=== PATIENT | male | born 1955 | race Caucasian/White ===

== ENCOUNTER 2017-12-26 20:18 | Inpatient (IN) | payer OTHER ==
[~2017-12-26] VITALS: Ht 185.4 cm; Wt 99.8 kg
[~2017-12-26 20:18] MED LIST: BACTRIM DS TAB1 EACH PO; [UNRECOGNIZED DRUG - REMARK]
[2017-12-26 20:22] VITALS: BP 154/76
[2017-12-26] MEDS ORDERED: ATORVASTATIN CA40 MG PO (20:29)
[2017-12-26] MEDS ORDERED: FOSAMAX 70 MG T70 MG PO (20:29)
[2017-12-26] MEDS ORDERED: ASPIR 8181 MG PO (20:29)
[2017-12-26] MEDS ORDERED: VITAMINC500 PO (20:29)
[2017-12-26] MEDS ORDERED: AZITHROMYCIN 2250 MG PO (20:30)
[2017-12-26] MEDS ORDERED: CODEINE-GUAIFE120 ML PO (20:31)
[2017-12-26] MEDS ORDERED: DICLOFENAC SODI75 MG TOP (20:32)
[2017-12-26] MEDS ORDERED: IRON325 PO (20:33)
[2017-12-26] MEDS ORDERED: DOXYCYCLINE 10100 MG PO (20:33)
[2017-12-26] MEDS ORDERED: ALLERGY RELIEF180 MG PO (20:33)
[2017-12-26] MEDS ORDERED: FLONASE 0.05%50 MCG NASAL (20:34)
[2017-12-26] MEDS ORDERED: NEURONTIN300 MG PO (20:34)
[2017-12-26] MEDS ORDERED: GENERLAC10 GM/15 M PO (20:35)
[2017-12-26] MEDS ORDERED: COZAAR 25 MG TA25 M1 PO (20:35)
[2017-12-26] MEDS ORDERED: MAGOX 400400 MG PO (20:35)
[2017-12-26] MEDS ORDERED: NITROGLYCERIN0.4 MG SUBLING (20:36)
[2017-12-26] MEDS ORDERED: LOPRESSOR25 PO (20:36)
[2017-12-26] MEDS ORDERED: MELATONIN5 M1 PO (20:36)
[2017-12-26] MEDS ORDERED: GLUCOPHAGE XR500 MG PO (20:36)
[2017-12-26] MEDS ORDERED: OMEPRAZOLE20 M2 PO (20:37)
[2017-12-26] MEDS ORDERED: OXYCODONE HCL 55 MG PO (20:37)
[2017-12-26] MEDS ORDERED: VALACYCLOVIR HCL1 GM PO (20:38)
[2017-12-26] MEDS ORDERED: AMBIEN 5 MG TABL5 M1 PO (20:38)
[2017-12-26 20:50] LABS: ABSOLUTE LYMPHOCYTES 0.4 thou/uL (0.8-5.3); ABSOLUTE MONOCYTES 0.4 thou/uL (0.0-1.2); ABSOLUTE NEUTROPHILS 2.1 thou/uL (1.6-8.1); BASOPHILS 0.2 %; EOSINOPHILS 0.5 %; HEMATOCRIT 38.9 % (42.0-52.0); HEMOGLOBIN 13.8 gm/dL (14.0-18.0); LYMPHOCYTES 13.9 %; MCH 32.8 pg (26.0-34.0); MCHC 35.3 g/dL (28.0-37.0); MCV 92.8 fL (80.0-100.0); MONOCYTES 12.7 %; MPV 7.7 fl. (7.2-11.1); NUCLEATED RBCS 0 /100WBC; PLATELET COUNT* 103 thou/uL (150-400); POLYS 72.7 %; RDW-CV 12.9 % (10.5-14.5); WBC 2.9 thou/uL (4.0-11.0)
[2017-12-26 20:57] LABS: ANION GAP 10 mmol/L (7-16); BUN 14 mg/dL (7-18); CALCIUM 8.8 mg/dL (8.5-10.1); CHLORIDE 97 mmol/L (98-107); CO2 26 mmol/L (21-32); CREATININE 0.9 mg/dL (0.6-1.3); GLUCOSE 216 mg/dL (70-99); INR 1.3; PROTIME 12.6 Seconds (9.20-11.50); SODIUM 133 mmol/L (136-145)
[2017-12-26 21:07] LABS: ALBUMIN 3.2 g/dL (3.4-5.0); ALKALINE PHOSPHATASE 57 U/L (46-116); LIPASE 101 U/L (73-393); NT-PRO BRAIN NAT PEPTIDE 835 pg/mL (<300); SGOT 37 U/L (15-37); SGPT 46 U/L (30-65); TOTAL BILIRUBIN 0.7 mg/dL (<0.1-1.0); TOTAL PROTEIN 7.8 g/dL (6.4-8.2); TROPONIN-I LEVEL <0.06 ng/mL (<0.06)
[2017-12-26 21:14] LABS: URINE BILIRUBIN NEGATIVE (Negative); URINE BLOOD 1+ (Negative); URINE CLARITY CLEAR; URINE COLOR YELLOW; URINE GLUCOSE-RANDOM NEGATIVE (Negative); URINE KETONES NEGATIVE (Negative); URINE LEUKOCYTES-REFLEX NEGATIVE (Negative); URINE NITRITE-REFLEX NEGATIVE (Negative); URINE PROTEIN NEGATIVE (Negative); URINE UROBILINOGEN 0.2 E.U./dl (0.2-1.0)
[2017-12-26 21:43] LABS: BACTERIA-REFLEX None Seen /HPF (None Seen); CASTS None Seen /LPF (None Seen); CRYSTALS None Seen /LPF (None Seen); SQUAMOUS 0-3 Few /LPF (0-3); URINE RBC 3-10 Few /HPF (0-2); URINE WBC-REFLEX None Seen /HPF (0-5)
[2017-12-26 22:46] LABS: INFLUENZA A ANTIGEN None Detected (None Detect); INFLUENZA B ANTIGEN None Detected (None Detect)
[2017-12-26 22:55] VITALS: BP 134/68
[2017-12-26 23:05] VITALS: BP 133/76
[2017-12-27 07:56] LABS: AMP/METHAMP Negative (Negative); BARBITURATES Negative (Negative); BENZODIAZEPINES Negative (Negative); COCAINE Negative (Negative); METHADONE Negative (Negative); OPIATES POSITIVE (Negative); PCP Negative (Negative); THC Negative (Negative)
--- NOTE | 2017-12-27 11:18 | EKG ---
[place] [address] ELECTROCARDIOGRAM REPORT Name: ALISTAIR MORALES Room: [address] ADM [place] .R.#: [id number] Admission: 12/26/17 Attend Phys: Max Messer MD Discharge: Date of : 53 Report #: [id number] THIS REPORT FOR: //name// [facility] ED Test Date: 2017-12-26 Test Time: 21:02:30 Pat Name: ALISTAIR MORALES Department: Room: Gender: M Supervisor Electronic Testing: : 1955 Requested By: Ifeanyi Espinosa Order Number: [id number] MD: George Johnson Measurements Intervals [place] Rate: 79 P: 57 GA: 158 QRS: -11 QRSD: 97 T: 67 QT: 367 QTc: 421 Interpretive Statements Sinus rhythm RSR' in V1 or V2, right VCD or RVH No previous ECG available for comparison Electronically Signed On 12-27-2017 11:18:30 CDT by George Johnson [email or web address] <ELECTRONICALLY SIGNED> By: George Johnson MD, [facility] 12/27/17 1118 01 01 George Johnson MD, FACC /EPI
[2017-12-27 11:22] VITALS: BP 139/76
[2017-12-27 16:00] VITALS: BP 137/78
[2017-12-27 21:15] VITALS: BP 131/64
[2017-12-27 22:07] LABS: COMPLEMENT-C4 28 mg/dL (14-44)
[2017-12-28 05:17] LABS: ABSOLUTE LYMPHOCYTES 0.9 thou/uL (0.8-5.3); ABSOLUTE MONOCYTES 0.6 thou/uL (0.0-1.2); ABSOLUTE NEUTROPHILS 2.4 thou/uL (1.6-8.1); BASOPHILS 0.3 %; HEMATOCRIT 35.7 % (42.0-52.0); LYMPHOCYTES 22.8 %; MCH 33.8 pg (26.0-34.0); MCHC 36.3 g/dL (28.0-37.0); MONOCYTES 14.7 %; MPV 8.2 fl. (7.2-11.1); NUCLEATED RBCS 0 /100WBC; PLATELET COUNT* 94 thou/uL (150-400); POLYS 61.2 %; RBC 3.84 mil/uL (4.50-6.00); RDW-CV 12.9 % (10.5-14.5)
[2017-12-28 05:45] LABS: CALCIUM 8.5 mg/dL (8.5-10.1); CREATININE 0.8 mg/dL (0.6-1.3); POTASSIUM 4.6 mmol/L (3.5-5.1)
[2017-12-28 07:37] VITALS: BP 138/76
--- NOTE | 2017-12-28 07:54 | CON ---
[facility] [address] [place] [address] CONSULTATION Name: ALISTAIR MORALES Room: [address] [place] .R.#: [id number] Admission: 12/26/17 Attend Phys: Max Messer MD Discharge: Date of : 53 Report #: [id number] THIS REPORT FOR: //name// CC: BRAYDON Messer DATE OF SERVICE: 12/27/2017 ATTENDING PHYSICIAN: Max Messer MD. REASON FOR EVALUATION: . HISTORY OF PRESENT ILLNESS: Chart reviewed, patient examined. This is a 62-year-old with fairly significant medical history given his age, at one point had a hepatitis C that has led to advanced liver disease, although he has been infection free for a number of years due to treatment. He has diabetes, has history of colon cancer with resection. This is apparently due to acute diverticulitis complication. He did have the ostomy, which was reversed. He is on disability, but he is quite active. Denies any particular exposures. He notes roughly 18 days ago, had developed respiratory type complaints, specifically cough that was productive of some greenish sputum. Evaluation was unremarkable. He was treated symptomatically initially and return for evaluation, was placed on azithromycin and more recently he was seen in the Emergency Room 3 days ago, had evaluation, he was discharged and told that the laboratory was normal. He denies significant pain at this point. He has temperature elevated up to 103.3. He was given a single dose of levofloxacin. ALLERGIES: PENICILLIN, LISINOPRIL, HYDROMORPHONE. CURRENT MEDICATIONS: Include pantoprazole, melatonin, enoxaparin, oxycodone, losartan with occasional ferrous sulfate, aspirin, ascorbic acid, gabapentin, atorvastatin, metoprolol, zolpidem. PAST MEDICAL HISTORY: As described above history of diabetes. He has had documented coronary artery disease with aortocoronary bypass grafting. Hypertension. SOCIAL HISTORY: Nonsmoker, no ethanol, no illicit drug use. FAMILY HISTORY: Noncontributory. REVIEW OF SYSTEMS: As above. PHYSICAL EXAMINATION: GENERAL: Pleasant, appears somewhat chronically ill, mild distress, [place] [address] CONSULTATION Name: ALISTAIR MORALES Room: [address]#: [id number] Admission: 12/26/17 Attend Phys: Max Messer MD Discharge: Date of : 53 Report #: [id number] VITAL SIGNS: T-max 103.3, more recently 99. Pulse 77. There is little bit of temperature-pulse dissociation. Blood pressure is 133/76, saturations 96%. SKIN: Warm. There are no rashes. HEENT: Unremarkable. NECK: Supple. LUNGS: Clear to auscultation. HEART: Regular. I do not appreciate a murmur. ABDOMEN: Soft, mildly distended and has splenomegaly. GENITOURINARY AND RECTAL: Deferred. LABORATORY DATA: White count is low at 2.9, H and H 13.8 and 38.9, platelets of 103. PT 12.6. INR of 1.3. Lactic acid of 1.6. Electrolytes: Sodium 133, potassium 4, chloride 97, bicarbonate is 26, anion gap of 10, BUN and creatinine 14 and 0.9, glucose of 216. LFTs unremarkable. Albumin of 3.2, total protein 7.8, estimated GFR of 85. Urinalysis: No white cells. CT of the chest showed no acute process. CT of the abdomen and pelvis, cholelithiasis with contracted gallbladder, small amount of fluid within that region. Liver, spleen, pancreas are unremarkable. CRP of 9.1. Influenza antigen was negative. Sed rate of 53. TSH of 1.835. ASSESSMENT: Febrile illness, uncertain etiology, seems to have initially centered around the respiratory tract. A CT followup was unremarkable. Certainly consider nonpyogenic focus of infection. We will do some serologies. Check Bartonella. Does have dogs. He has had blood cultures taken. We will see with those and rule out evidence of endovascular infection. At this point, he is not overtly toxic. Did discuss with the patient and spouse. <ELECTRONICALLY SIGNED> By: Darrell Coelho MD 12/28/17 [id number] Coelho MD /nt
[2017-12-28 16:00] VITALS: BP 126/57
[2017-12-28 21:00] VITALS: BP 159/86
[2017-12-29 07:40] VITALS: BP 110/81
[2017-12-29 08:50] LABS: ABSOLUTE LYMPHOCYTES 0.5 thou/uL (0.8-5.3); ABSOLUTE MONOCYTES 0.2 thou/uL (0.0-1.2); BASOPHILS 0.4 %; EOSINOPHILS 0.6 %; HEMATOCRIT 40.3 % (42.0-52.0); HEMOGLOBIN 14.1 gm/dL (14.0-18.0); LYMPHOCYTES 11.1 %; MCH 32.6 pg (26.0-34.0); MCV 93.1 fL (80.0-100.0); MPV 8.3 fl. (7.2-11.1); NUCLEATED RBCS 0 /100WBC; PLATELET COUNT* 121 thou/uL (150-400); POLYS 82.9 %; RBC 4.33 mil/uL (4.50-6.00); RDW-CV 12.8 % (10.5-14.5); WBC 4.8 thou/uL (4.0-11.0)
[2017-12-29 09:12] LABS: ALBUMIN 3.2 g/dL (3.4-5.0); CALCIUM 8.8 mg/dL (8.5-10.1); CREATININE 0.9 mg/dL (0.6-1.3); POTASSIUM 4.2 mmol/L (3.5-5.1); TOTAL BILIRUBIN 0.9 mg/dL (<0.1-1.0); TOTAL PROTEIN 7.8 g/dL (6.4-8.2)
[2017-12-29 13:04] VITALS: BP 110/81
[2017-12-29 18:11] LABS: ANA INTERPRETATION Negative (Negative); ANTI-DNA SCREEN <1 IU/mL (0-9)
[2017-12-30 15:10] LABS: CMV IgM Abs <30.0 AU/mL (0.0-29.9)
== END 2017-12-29 13:23 | disposition home or self-care (01) | DRG 864 ==
LOC: M.ERS 20:18 → M.ORTHSURG 22:31 → M.TBA-ER 22:31 → M.ORTHSURG 23:01
PROVIDERS: Family Medicine; Internal Medicine; Specialist; ADMIT Internal Medicine
DX: R50.9 Fever, unspecified (principal); R65.10 Systemic inflammatory response syndrome (SIRS) of non-infectious origin without acute organ dysfunction; F11.20 Opioid dependence, uncomplicated; D61.818 Other pancytopenia; E11.9 Type 2 diabetes mellitus without complications; I25.10 Atherosclerotic heart disease of native coronary artery without angina pectoris; G89.29 Other chronic pain; D75.9 Disease of blood and blood-forming organs, unspecified; I10 Essential (primary) hypertension; Z95.5 Presence of coronary angioplasty implant and graft; Z95.1 Presence of aortocoronary bypass graft; Z88.6 Allergy status to analgesic agent; Z88.0 Allergy status to penicillin; Z88.8 Allergy status to other drugs, medicaments and biological substances; Z82.69 Family history of other diseases of the musculoskeletal system and connective tissue; Z86.19 Personal history of other infectious and parasitic diseases; Z79.899 Other long term (current) drug therapy